=== PATIENT | male | born 1965 | race Caucasian/White ===

== ENCOUNTER 2022-12-13 12:28 | Inpatient (IN) | payer SELFPAY ==
[~2022-12-13 12:28] MED LIST: Iopamidol-370 76% 500 ML 1 ML ONE
[2022-12-13 12:59] LABS: #Eosinphils 0.1 thou/uL (0.0-0.7); #Lymphocytes 1.8 thou/uL (1.20-3.40); #Monocytes 0.6 thou/uL (0.11-0.59); #Neutrophils 7.9 thou/uL (1.40-6.50); %Basophils 0.1 % (0.0-1.0); %Eosinophils 0.7 % (0.0-10.0); %Lymphocytes 17.4 % (21.0-51.0); %Monocytes 5.5 % (0.0-10.0); %Neutrophils 76.3 % (42.0-75.0); Hemoglobin 15.4 g/dL (14.0-18.0); Mean Corpuscular HGB CONC 33.4 g/dL (32.0-36.0); Mean Corpuscular Hemoglobin 28.1 pg (27.0-31.0); Mean Corpuscular Volume 84.3 fl (78.0-98.0); Mean Platelet Volume 7.1 fL (7.4-10.4); Platelet Count 233 10x3/uL (130-400); RBC Distribution Width 12.8 % (11.5-14.5); Red Blood Cell (RBC) Count 5.48 mill/uL (4.70-6.10); White Blood Cell (WBC) Count 10.3 10x3/uL (4.8-10.8)
[2022-12-13 13:14] LABS: PTT 29.2 sec (22.9-36.1)
[2022-12-13 13:15] LABS: Prothrombin Time 13.5 sec (12.0-14.7)
[2022-12-13 13:18] LABS: ALT (SGPT) 18 U/L (8-55); AST (SGOT) 17 U/L (5-34); Acetaminophen Less than 10.0 mcg/mL (10.0-30.0); Alcohol Less than 10 mg/dL (Less than 10); Alkaline Phosphatase 68 U/L (40-110); Anion Gap 15 mmol/L (10-20); BUN (Urea Nitrogen) 17 mg/dL (8.4-25.7); Bilirubin, Total 0.9 mg/dL (0.2-1.2); CK (CPK) 229 U/L (30-200); Calc. Creatinine Clearance 0 mL/min (70-130); Calcium 9.3 mg/dL (7.8-10.44); Carbon Dioxide 22 mmol/L (22-29); Chloride 104 mmol/L (98-107); Estimated GFR 93; Globulin 3.6 g/dL (2.4-3.5); Glucose 108 mg/dL (70-105); Magnesium 2.1 mg/dL (1.6-2.6); Potassium 4.1 mmol/L (3.5-5.1); Protein, Total 7.6 g/dL (6.0-8.3); Salicylate Less than 8.0 mg/dL (15.0-30.0); Sodium 137 mmol/L (136-145)
[2022-12-13 14:11] LABS: SARS-CoV-2 NAA Rapid Test Not Detected (NotDetected)
[2022-12-13] MEDS ORDERED: hydrALAZINE 20 MG/ML VIAL ONE (14:18)
[2022-12-13] MEDS ORDERED: hydrALAZINE 20 MG/ML VIAL SLOW IVP PRN (14:32)
[2022-12-13] MEDS ORDERED: Aspirin 325 mg Enteric Coated Tablet PO SCH (15:15)
[2022-12-13 18:26] VITALS: BMI 49.1
[2022-12-13] MEDS ORDERED: Atorvastatin Calcium 40 MG TAB PO SCH (21:00)
[2022-12-14 06:01] LABS: Cardiac Risk 3.9 (Less than 4.5)
[2022-12-14] MEDS: Aspirin 325 mg Enteric Coated Tablet PO SCH (08:36)
[2022-12-14] MEDS: Atorvastatin Calcium 40 MG TAB PO SCH (21:46)
[2022-12-15 07:09] LABS: Hemoglobin A1c 5.4 % (4.0-6.0)
[2022-12-15] MEDS: Clopidogrel Bisulfate 75 MG TAB PO SCH (08:36)
[2022-12-15] MEDS: Aspirin 325 mg Enteric Coated Tablet PO SCH (08:36)
[2022-12-15] MEDS: Atorvastatin Calcium 40 MG TAB PO SCH (20:09)
[2022-12-16] MEDS ORDERED: Aspirin Chewable 81 MG TAB PO SCH (09:00)
[2022-12-16] MEDS: Clopidogrel Bisulfate 75 MG TAB PO SCH (09:00)
[2022-12-16] MEDS ORDERED: Lisinopril/Hydrochlorothiazide 20 mg/12.5 mg Tablet PO SCH ×2 (09:18→09:30)
[2022-12-16 11:45] VITALS: TEMP 98.2
[2022-12-16 13:54] VITALS: BP 156/96
[2022-12-17] MEDS ORDERED: Lisinopril/Hydrochlorothiazide 20 mg/12.5 mg Tablet PO SCH (09:00)
== END 2022-12-16 17:21 | disposition home or self-care (01) | DRG 65 ==
LOC: ERS 12:28 → ERHOLD 14:03 → NEURO 16:42
PROVIDERS: ADMIT Internal Medicine; ATTEND Internal Medicine
DX: I63.9 Cerebral infarction, unspecified (principal); G81.91 Hemiplegia, unspecified affecting right dominant side; I10 Essential (primary) hypertension; R53.1 Weakness; Z20.822 Contact with and (suspected) exposure to COVID-19
CPT/HCPCS: 36415; 70450; 70496; 70498; 71045; 80053; 80061; 80307; 82550; 83036; 83605; 83735; 83880; 84484; 85025; 85610; 85730; 86140; 86850; 86900; 86901; 93005; 93306; 96374; J0360; J1650; Q9967; U0002